=== PATIENT | female | born 1940 | race Caucasian/White ===

== ENCOUNTER → 2017-09-08 08:23 | Outpatient (CLI) | payer MEDICARE, SELFPAY ==
--- NOTE | 2017-09-08 08:27 | HPBI_ITS ---
MAMMOGRAPHY - BILATERAL SCREENING 3-D ZECHARIAH SYNTHESIS REASON FOR EXAM: Female, 77 years old. Bilateral Screening 3-D tomosynthesis PERTINENT HISTORY: No significant family history. TECHNIQUE: 2-D mammograms and 3-D Zechariah synthesis of the breast (s) were performed. CAD was performed. COMPARISON: 08/08/16 FINDINGS: The breast composition is heterogeneously dense that can obscure small breast masses. Scattered benign calcifications are seen. No dense spiculated masses or suspicious microcalcifications are identified. No architectural distortion is identified. There is no skin thickening or retraction. There has been no significant change since the prior study. HPBI/SCREENING MAMM (CAD), BILAT IMPRESSION: No mammographic signs of malignancy. Routine yearly mammograms recommended. ASSESSMENT CATEGORY: BIRADS Category 2: Benign. A letter regarding these results will be sent to the patient by the facility within 30 days. FOLLOW UP RECOMMENDATION: Yearly follow up mammogram recommended. (A) Approximately 10% of breast cancers are not detected by mammography. A normal mammogram should not delay biopsy of a clinically suspicious abnormality. Electronically Signed: Cristóbal Huynh MD at 13:35 EDT , Service support ,
== END ==
PROVIDERS: Family Provider Family Medicine; PCP Family Medicine; Visit Provider Family Medicine
DX: Z12.31 Encounter for screening mammogram for malignant neoplasm of breast (principal)
CPT/HCPCS: 77063; 77067

== ENCOUNTER → 2018-09-11 12:34 | Outpatient (CLI) | payer MEDICARE, SELFPAY ==
--- NOTE | 2018-09-11 12:37 | BI_ITS ---
MAMMOGRAPHY - BILATERAL SCREENING 3-D ZECHARIAH SYNTHESIS REASON FOR EXAM: Female, 78 years old. Bilateral Screening 3-D tomosynthesis PERTINENT HISTORY: No significant family history. TECHNIQUE: 2-D mammograms and 3-D Zechariah synthesis of the breast (s) were performed. CAD was performed. COMPARISON: August 08, 2016, July 24, 2015 FINDINGS: The breast composition is almost entirely fat. Scattered benign calcifications are stable. No dense spiculated masses or suspicious microcalcifications are identified. No architectural distortion is identified. There is no skin thickening or retraction. There has been no significant change since the prior study. BI/SCREENING MAMM (CAD), BILAT IMPRESSION: No mammographic signs of malignancy. Routine yearly mammograms recommended. ASSESSMENT CATEGORY: BIRADS Category 2: Benign. A letter regarding these results will be sent to the patient by the facility within 30 days. FOLLOW UP RECOMMENDATION: Yearly follow up mammogram recommended. (A) Approximately 10% of breast cancers are not detected by mammography. A normal mammogram should not delay biopsy of a clinically suspicious abnormality. Electronically Signed: Joce Chavis MD at 17:38 EDT , Service support ,
== END ==
PROVIDERS: Family Provider Family Medicine; PCP Family Medicine; Referring Provider Family Medicine; Visit Provider Family Medicine
DX: Z12.31 Encounter for screening mammogram for malignant neoplasm of breast (principal)
CPT/HCPCS: 77063; 77067

== ENCOUNTER → 2018-11-02 12:41 | Outpatient (CLI) | payer MEDICARE, SELFPAY ==
[2018-11-02 09:41] VITALS: BMI 18.1
[2018-11-05 13:43] LABS: HPV APTIMA, High Risk Negative (Negative)
== END ==
PROVIDERS: Family Provider Family Medicine; PCP Family Medicine; Referring Provider Nurse Practitioner Women's Health; Visit Provider Nurse Practitioner Women's Health
DX: Z85.41 Personal history of malignant neoplasm of cervix uteri (principal)
CPT/HCPCS: 87624; 88175; G0145

== ENCOUNTER → 2019-02-15 08:50 | Outpatient (CLI) | payer MEDICARE, SELFPAY ==
[2018-11-02 09:41] VITALS: BMI 18.1
--- NOTE | 2019-02-15 08:54 | NM_ITS ---
CLINICAL: 78-year-old female with reported history of osteoarthritis. WHOLE BODY 99m Tc MDP RADIONUCLIDE BONE SCINTIGRAPHY COMPARISON: None available FINDINGS: Following the intravenous administration of 26.0 mCi of 99m Tc MDP, whole body bone images reveal: 1. Increased radiopharmaceutical concentration is identified in the right anterior third rib at the costochondral junction. 2. Facilitated tracer concentration is noted in the third-fifth lumbar vertebra and sacrum posteriorly on the left and right, the acromioclavicular compartments of both shoulders, the right hip involving the inferior and superior anterior acetabulum, dorsal medial compartment of the left ankle. 3. The remaining skeletal structures are scintigraphically unremarkable with normal-appearing renal images and urinary bladder activity identified. NM/Bone Scan Whole Body IMPRESSION: 1. The increased radiopharmaceutical concentration identified in the right anterior third rib is most consistent with trauma-fracture. 2. Degenerative arthritis appears expressed in the lower lumbar spine and sacrum, bilateral shoulders, right hip, the left ankle. Electronically Signed: Ramses Villarreal DO at 23:23 EDT Tel , Service support ,
== END ==
PROVIDERS: Family Provider Family Medicine; PCP Family Medicine; Referring Provider Physician Assistant; Visit Provider Physician Assistant
DX: M17.11 Unilateral primary osteoarthritis, right knee (principal); M54.16 Radiculopathy, lumbar region; M51.36 Other intervertebral disc degeneration, lumbar region
CPT/HCPCS: 78306

== ENCOUNTER 2020-01-25 12:22 | Emergency (ER) | payer MEDICARE, SELFPAY ==
[2018-11-02 09:41] VITALS: BMI 18.1
[2020-01-25 12:23] VITALS: BP 125/82; PULSE 89; RESP 16; TEMP 36.3; O2SAT 100; BMI 18.3
[2020-01-25 12:25] VITALS: BP 125/82; PULSE 89; RESP 16; TEMP 36.3; O2SAT 100
--- NOTE | 2020-01-25 12:41 | CT_ITS ---
STUDY: CT ABDOMEN AND PELVIS WITHOUT CONTRAST REASON FOR EXAM: Female, 79 years old. CYCLICAL VOMITING/ABD CRAMPING/VOMITING/DIARRHEA,HX CERVICAL/UTERINE CA RADIATION DOSAGE (If Supplied By Facility): CTDIvol = ( 6.04 ) mGy, DLP = ( 250.64 ) mGycm TECHNIQUE: Transaxial images were obtained from the dome of the diaphragm to the symphysis pubis without oral contrast, and without intravenous contrast. Sagittal and coronal images were reconstructed. Individualized dose optimization techniques were used for this CT. COMPARISON: None. FINDINGS: Mild increased linear markings in the lingular segment of the left upper lobe suggestive of scarring. The visualized portions of the heart are within normal limits. Normal liver. Small amount of perihepatic and perisplenic fluid. Scattered calcified granulomas in the liver. There is a 6.4 mm cyst in the posterior aspect of the dome of the right lobe of the liver. The gallbladder is not visualized. There are multiple benign calcified granulomata of the spleen. Normal pancreas. Normal bilateral adrenal glands. Normal right kidney. There is a 3.2 cm x 3.6 m cyst in the anterior aspect of the left kidney. Normal visualized stomach. Normal small intestine. Normal colon. The appendix is visualized and appears normal. There is a 2.7 cm x 2.3 cm densely calcified nodule in the right retroperitoneal area adjacent to the psoas muscle. Linear intensity is seen extending cephalad into the region of the gallbladder fossa. There is diffuse atherosclerotic calcification of the abdominal aorta and the major visceral branches, without a demonstrated aneurysm. Normal inferior vena cava. Normal retroperitoneum. Normal urinary bladder. There is absence of the uterus consistent with a prior hysterectomy. Normal abdominal wall. There are diffuse degenerative changes of the visualized lumbar spine. Dextroscoliosis. Straightening of the normal lumbar lordosis. CT/Abdomen/Pelvis without Cont IMPRESSION: Surgical clips are seen in the region of the gallbladder fossa with a dense calcific nodule in the right side of the retroperitoneum adjacent to the psoas muscle. Small amount of perihepatic fluid. Splenic granulomas and scattered granulomas in the liver. Electronically Signed: Jimenez Hu, at 13:13 EDT , Service support ,
--- NOTE | 2020-01-25 12:49 | ED.DCSUM_ITS ---
- ER Visit Summary Date of Service: 01/25/20 Chief Complaint: [Abdominal pain and vomiting] History of Present Illness: The patient is a 79 F [presents to the emergency department complaint of vomiting that started 3 nights ago. Patient has not vomited since that time but continues to have nausea and intermittent abdominal pain to the lower abdomen. Patient's had 4 loose stools today. Patient states that when she was living in [place] she was diagnosed with peptic ulcer disease but her primary care physician here has diagnosed her with cyclic vomiting syndrome. Patient has prior history of hysterectomy related to cervical cancer. Patient otherwise has no significant medical history. She denies any fevers. She denies urinary symptoms.] Physical Examination: [HEENT-PERRLA, EOMI. Cranial nerves II through XII grossly intact. TMs clear. Mucous membranes moist. No adenopathy. Cardiovascular-regular rate and rhythm without murmur or ectopy Lungs-clear to auscultation, chest wall stable without crepitus or subcu emphysema Abdomen-normoactive bowel sounds, soft. Patient has tenderness palpation over lower abdomen. No rebound, rigidity, or peritoneal signs noted. No obvious masses palpated. Negative Frias sign. Extremities-intact ?4, normal range of motion, normal pulses, atraumatic] Test Results: [CBC with differential showed a white count of 4.6, hemoglobin 15.7, hematocrit 47, platelets 274. Chemistries unremarkable. Total bilirubin was slightly elevated 2.1. Lipase was 133. Urinalysis was normal. Lactate was 1.6. CT scan of the abdomen pelvis without IV contrast showed a 2.7 x 2.3 cm nodule right retroperitoneal next to the right psoas muscle. Patient also had small amount of perihepatic fluid and splenic granulomas and scattered granulomas within the liver.] Emergency Department Course and Treatment: [ Establish. Patient was given normal saline. Patient given 4 mg of morphine and 4 mg of Zofran she had good symptom relief with that.] Case was discussed with Dr. Aliza Nelson and will discuss case with her primary care physician. Treatment Plan: [Patient to follow-up with her primary care physician within next 3 to 5 days. A prescription was sent to pharmacy from her primary care physician's office for Zofran which she will parts picker. She does not anything for pain for home. Patient advised that if the pain should worsen or she should start running fevers or persistent vomiting she is return to the emergency department.] Disposition: [Discharged home in stable condition] Impression: [Abdominal pain-acute on chronic-etiology uncertain] This note was generated with [employer] dictation software. It may contain incorrect words, spelling, and punctuation that were not noted in review of the chart prior to signing ED Disposition - Plan for ED Patient: Referrals: Milind Pedro MD [Primary Care Provider] -
[2020-01-25] MEDS: Ondansetron 4 MG/2 ML Vial IV (13:10)
[2020-01-25] MEDS: 0.9% Normal Saline 1,000 ML 125 ML IV (13:10)
[2020-01-25] MEDS: Morphine 4 MG/ML Syringe IV (13:10)
[2020-01-25 13:22] LABS: Color, Urine Yellow (Yellow); Glucose, Dipstick Normal (Normal); Ketone-Dipstick 5 mg/dl (Negative); Leukocyte Esterase-Dipstick Negative /ul (Negative); Nitrite-Dipstick Negative (Negative); Occult Blood-Urine 150 /ul (Negative); Protein-Dipstick 15 mg/dl (Negative); Urine Bilirubin Dipstick Negative (Negative); Urine Clarity Clear (Clear); Urine Urobilinogen Normal (Normal)
[2020-01-25 13:24] LABS: Absolute Lymphocyte Count 0.59 X10^3/uL (0.83-4.51); Absolute Neutrophil Count 3.4 X10^3/uL (2.0-7.7); Basophil# 0.01 X10^3/uL; Basophil% 0.2 % (0-1); Eosinophil# 0.01 X10^3/uL; Eosinophils% 0.2 % (0-5); Hematocrit 47.2 % (37-47); Hemoglobin 15.7 g/dL (12.0-15.0); Lymphocyte # 0.59 X10^3/ul (4.0); Lymphocyte % 12.8 % (19-41); Mean Corp Hgb Conc 33.3 g/dL (32-36); Mean Corpuscular Hgb 33.1 pg (27.0-32.0); Mean Corpuscular Volume 99.6 fL (81-99); Mean Platelet Vol. 9.5 fl (6.2-12.0); NRBC Flagged by Analyzer 0 % (0-5); Neutrophil # 3.39 X10^3/uL (2.7-7.7); Neutrophil % 73.8 % (47-70); POSITIVE DIFFERENTIAL YES; Platelet Count 274 K/mm3 (150-450); RBC Distribution Width CV 12.2 % (11.6-14.6); RBC Distribution Width SD 44.9 fl (35.1-43.9); Red Blood Count 4.74 M/mm3 (4.2-5.4); White Blood Count 4.6 K/mm3 (4.4-11.0)
[2020-01-25 13:34] LABS: Bacteria 1+ /hpf (None Seen); Mucous, Urine 2+ /hpf (<or=2+); Red Blood Cells-Urine 0-5 SEEN /hpf (0-5); Renal Epithelial Cells 0-5 SEEN /hpf (0-5); Squamous Epithelial Cells - UA 0-5 SEEN /hpf (5-10); White Blood Cells 0-5 SEEN /hpf (0-5)
[2020-01-25 13:39] LABS: ALB/GLOB Ratio 1.1 RATIO (0.9-2.4); AST(SGOT) 20 U/L (15-37); Alanine Aminotransfer ALT/SGPT 28 U/L (13-56); Albumin, Serum 3.4 g/dL (3.2-5.0); Alkaline Phosphatase 82 U/L (45-117); Anion Gap 4 (5-15); BUN 18 mg/dL (7-18); BUN/Creat Ratio 18.3 RATIO (10-20); Calcium,Total 8.7 mg/dL (8.5-10.1); Chloride 105 mmol/L (98-107); Creatinine, Serum 0.98 mg/dL (0.55-1.02); EST Glomerular Filtration Rate 58 mL/min (>60); Est Glom Filt Rate - Afr Amer 71 mL/min (>60); Estimated Creatinine Clearance 37.87 ml/min; Globulin 3.2 g/dL (2.2-4.2); Glucose 117 mg/dL (74-106); Lipase 133 U/L (73-393); Potassium 4.3 mmol/L (3.5-5.1); Protein, Total 6.6 g/dL (6.4-8.2); Sodium Level 140 mmol/L (136-145)
[2020-01-25 13:46] LABS: Differential Indicated SCAN CRITERIA MET
[2020-01-25 14:00] LABS: Lactic Acid 1.6 mmol/L (0.4-1.9)
[2020-01-25 14:29] VITALS: BP 100/59; PULSE 58; RESP 16; O2SAT 98
--- NOTE | 2020-01-25 14:31 | ED.DEP ---
ED Disposition - Plan for ED Patient: Instructions: ED Abdominal Pain Unkn Cause Fem Referrals: Milind Pedro MD [Primary Care Provider] - 3-5 Days
== END 2020-01-25 14:46 | disposition home or self-care (01) ==
PROVIDERS: Emergency Provider Emergency Medicine; PCP Family Medicine
DX: R10.30 Lower abdominal pain, unspecified (principal); R11.2 Nausea with vomiting, unspecified; R19.7 Diarrhea, unspecified; Z87.11 Personal history of peptic ulcer disease; Z85.42 Personal history of malignant neoplasm of other parts of uterus; Z90.710 Acquired absence of both cervix and uterus
CPT/HCPCS: 74176; 80053; 81001; 83605; 83690; 85025; 96361; 96374; 96375; 99283; J7030; A4216; J2405

== ENCOUNTER 2020-02-06 13:51 | Emergency (ER) | payer MEDICARE, SELFPAY ==
[2020-02-06 13:52] VITALS: BP 124/74; PULSE 94; RESP 17; TEMP 36.6; O2SAT 97; BMI 16.2
--- NOTE | 2020-02-06 14:22 | EKG12_ITS ---
Test Reason : ABDOMINAL PAIN Blood Pressure : / mmHG Vent. Rate : 069 BPM Atrial Rate : 340 BPM P-R Int : 000 ms QRS Dur : 156 ms QT Int : 368 ms P-R-T Axes : 000 081 078 degrees QTc Int : 394 ms Normal sinus rhythm Non-specific intra-ventricular conduction block Abnormal ECG Confirmed by CAIO NEAL, ELIAZAR ([id number]), digital editor SHAHRZAD HADLEY ([id number]) on 02/07/2020 2:44:55 PM Referred By: JACQUES Confirmed By:ELIAZAR KEARNEY MD
--- NOTE | 2020-02-06 14:32 | NURSING ---
NO OLD EKGS
[2020-02-06] MEDS: proMETHazine 25 MG/ML Syringe 6.25 MG IV (14:42)
[2020-02-06 14:43] LABS: Absolute Lymphocyte Count 0.54 X10^3/uL (0.83-4.51); Basophil# 0.02 X10^3/uL; Basophil% 0.2 % (0-1); Eosinophil# 0.03 X10^3/uL; Eosinophils% 0.3 % (0-5); Hematocrit 44.6 % (37-47); Lymphocyte # 0.54 X10^3/ul (4.0); Lymphocyte % 5.9 % (19-41); Mean Corp Hgb Conc 33.6 g/dL (32-36); Mean Corpuscular Hgb 32.9 pg (27.0-32.0); Mean Corpuscular Volume 97.8 fL (81-99); Mean Platelet Vol. 9.6 fl (6.2-12.0); Monocyte# 0.61 X10^3/uL; Monocyte% 6.6 % (0-10); NRBC Flagged by Analyzer 0 % (0-5); Neutrophil # 7.98 X10^3/uL (2.7-7.7); Neutrophil % 86.9 % (47-70); POSITIVE DIFFERENTIAL YES; Platelet Count 347 K/mm3 (150-450); RBC Distribution Width CV 11.8 % (11.6-14.6); RBC Distribution Width SD 42.5 fl (35.1-43.9); Red Blood Count 4.56 M/mm3 (4.2-5.4); White Blood Count 9.2 K/mm3 (4.4-11.0)
[2020-02-06] MEDS: 0.9% Normal Saline 1,000 ML 1000 ML IV (14:43)
[2020-02-06 14:44] LABS: Differential Indicated SCAN CRITERIA MET
--- NOTE | 2020-02-06 14:59 | ED.DCSUM_ITS ---
History of Present Illness Chief Complaint: Abd Pain Informant: Patient, Significant Other - Abdominal Pain/Flank Pain Onset: Weeks Context: Gradual Onset Timing: Intermittent Quality: Aching, Cramping Location: RLQ, LLQ - Nausea/Vomiting/Emesis GI Symptom: Nausea, Vomiting Quality: Coffee ground - Diarrhea/Melena/Hematochezia GI Symptom: Diarrhea Stool Quality: Loose. Negative for: Black, Maroon, YELENA per rectum Associated Symptoms: Negative for: Dysuria, Frequency, Hematuria Narrative: Patient is a 79-year-old female with history of peptic ulcer disease and cyclic vomiting syndrome presenting with lower abdominal pain. Patient states she has had intermittent episodes of lower abdominal pain, vomiting and diarrhea for the past 2 weeks. She is actually evaluated in the ER 10 days ago with same symptoms. At that time she had blood work and a CT which were all grossly negative. She was discharged home with a course of Zofran. She followed up with her PCP and has an appointment to see HELENA Page on February 23. She states she is continued to have recurrent episodes and wanted to be evaluated further. She states she has not had any vomiting or diarrhea today but has had lower abdominal pain that she describes as aching and cramping in nature. She has some associated nausea. When she is having a vomiting diarrhea episode she has chills but denies any fever. She denies any chest pain or shortness of breath. She does get a headache sometimes with her symptoms. She denies any urinary symptoms. Patient is been taking Pepcid the last 2 days with no significant leaf of her symptoms and the Zofran is not helping either. She denies any marijuana or other drug use. She does not take any medications on a daily basis. Week ago she did have what looked like coffee-ground emesis but that has since resolved. No other complaints at this time. Past Medical History - Allergies and Home Meds Allergies/Adverse Reactions: Allergies No Known Allergies Allergy (Verified 02/06/20 13:52) Primary Care Physician: Milind Pedro MD [Primary Care Provider] - Past Medical History: - - Peptic ulcer disease, cyclic vomiting syndrome Surgical History: noncontributory Lives: Spouse/ Significant Other Smoking Status: Never smoker Alcohol: None Drugs: None Review of Systems General: Denies: Chills, Fever, Sweats Eyes: Denies: Visual changes - bilaterally, Diplopia ENT: Denies: Rhinorrhea, Sore throat Cardiovascular: Denies: Chest pain, Palpitations Respiratory: Denies: Dyspnea, Cough, Dyspnea on exertion Gastrointestinal: Reports: Abdominal pain, Nausea, Vomiting, Diarrhea. Denies: Melena, Hematochezia Genitourinary: Denies: Dysuria, Hematuria, Frequency Musculoskeletal: Denies: Back pain, Extremity Pain Skin: Denies: Rash, Wounds Neurological: Reports: Headache. Denies: Weakness, Numbness Physical Exam Vital Signs/Narrative: Vital Signs Temp Pulse Resp BP Pulse Ox 02/06/20 13:52 97.8 F 94 17 124/74 H 97 Inital Vital Signs reviewed: Yes General: Well nourished, Well developed, No Acute Distress Head: Normocephalic, Atraumatic Eyes: Perrl, EOMI ENT: Moist mucous membranes, No rhinorrhea Neck: Supple, Nontender Cardiovascular: Regular rate, Regular rhythm, No murmurs Respiratory: No distress, CTA bilaterally, Chest nontender Abdomen: Soft, Nontender, Nondistended, Normal bowel sounds, - - Mild voluntary guarding on abdominal exam but no reproducible tenderness. Negative for: Guarding, Rebound tenderness Back: Nontender, Normal Inspection. Negative for: CVA tenderness Extremities: Nontender, No edema Skin: Normal color, No rash Neurological: Alert, Oriented x3, Cranial nerves II-XII grossly intact, Normal Strength, Normal Sensation Psychological: Normal affect, Normal Mood Diagnostic/Tx/Re-eval Laboratory Data 02/06/20 02/06/20 02/06/20 14:40 14:40 14:40 WBC 9.2 RBC 4.56 Hgb 15.0 Hct 44.6 MCV 97.8 MCH 32.9 H MCHC 33.6 RDW Std Deviation 42.5 RDW Coeff of Raysa 11.8 Plt Count 347 MPV 9.6 Immature Gran % (Auto) 0.100 Neut % (Auto) 86.9 H Lymph % (Auto) 5.9 L [place] % (Auto) 6.6 Eos % (Auto) 0.3 Baso % (Auto) 0.2 Absolute Neuts (auto) 8.0 H Absolute Lymphs (auto) 0.54 L Nucleated RBC % 0 Reactive Lymphocytes RARE Sodium 141 Potassium 3.7 Chloride 104 Carbon Dioxide 32.0 Anion Gap 5 BUN 11 Creatinine 0.81 Estim Creat Clear Calc 40.49 Est GFR (MDRD) Af Amer 88 Est GFR (MDRD) Non-Af 73 BUN/Creatinine Ratio 13.5 Glucose 95 Lactic Acid 1.4 Calcium 8.9 Total Bilirubin 1.10 H AST 15 ALT 14 Alkaline Phosphatase 83 Troponin I < 0.015 Total Protein 6.3 L Albumin 3.1 L Globulin 3.2 Albumin/Globulin Ratio 1.0 Lipase 156 Urine Color Urine Clarity Urine pH Ur Specific [place] Urine Protein Urine Glucose (UA) Urine Ketones Urine Occult Blood Urine Nitrite Urine Bilirubin Urine Urobilinogen Ur Leukocyte Esterase Urine RBC Urine WBC Ur Squamous Epith Cells Urine Bacteria Urine Mucus 02/06/20 15:10 WBC RBC Hgb Hct MCV MCH MCHC RDW Std Deviation RDW Coeff of Raysa Plt Count MPV Immature Gran % (Auto) Neut % (Auto) Lymph % (Auto) [place] % (Auto) Eos % (Auto) Baso % (Auto) Absolute Neuts (auto) Absolute Lymphs (auto) Nucleated RBC % Reactive Lymphocytes Sodium Potassium Chloride Carbon Dioxide Anion Gap BUN Creatinine Estim Creat Clear Calc Est GFR (MDRD) Af Amer Est GFR (MDRD) Non-Af BUN/Creatinine Ratio Glucose Lactic Acid Calcium Total Bilirubin AST ALT Alkaline Phosphatase Troponin I Total Protein Albumin Globulin Albumin/Globulin Ratio Lipase Urine Color Yellow Urine Clarity Sl. Cloudy Urine pH 7.0 Ur Specific [place] 1.005 Urine Protein Negative Urine Glucose (UA) Normal Urine Ketones 15 H Urine Occult Blood 10 H Urine Nitrite Negative Urine Bilirubin Negative Urine Urobilinogen 1 H Ur Leukocyte Esterase Negative Urine RBC 0 SEEN Urine WBC 0 SEEN Ur Squamous Epith Cells 0-5 SEEN Urine Bacteria 0 SEEN Urine Mucus 0 SEEN - Rhythm Strip Rhythm Strip: Sinus Rhythm Rate: 69 Ectopy: None - EKG Initial EKG Interpretation: Sinus Rhythm, - - Sinus rhythm at a rate of 69 Normal intervals Normal axis Normal ST segments - Medical Decision Making Patient evaluated for recurrent episodes of lower abdominal pain. It is consistent with her episodes of cyclic vomiting syndrome. Patient had a very thorough work-up 10 days ago including blood work, urine and CT of the abdomen and pelvis. Work-up was largely negative. Repeat blood work and urinalysis did not show any acute process. Patient's lactate is normal. She is not pain out of proportion to exam. I do not suspect that she has a more insidious process such as ischemia of the bowels, infection or sepsis. I do not think repeat imaging is indicated at this time. Patient is given IV Phenergan and fluids and has significant resolution of her symptoms. I suspect this is flareup of her cyclic vomiting syndrome which she states she has a previous diagnosis of. Patient be discharged home with Bentyl and Phenergan for symptomatic relief. She has a follow-up with GI in 2 weeks. She is instructed to follow-up with her primary care doctor this week. She is directed to continue taking Pepcid as she might have a component of gastritis from all the vomiting. Patient is counseled on signs and symptoms requiring return to the emergency room. Patient verbalizes agreement and understand this plan. Patient discharged home in stable and improved condition. ED Disposition - Plan for ED Patient: Disposition: Home or Assisted Living Diagnosis: Vomiting and diarrhea, Lower abdominal pain of unknown etiology Instructions: ED Vomiting and Diarrhea Nonspecific Adult, ED Abdominal Pain Unkn Cause Fem Prescriptions: Dicyclomine HCl [Bentyl] 20 mg PO TIDAC #20 cap Transmission Status: Pending to [facility]ILY[facility] GONZALE[address] [facility] proMETHazine tablet [Phenergan tablet] 12.5 - 25 mg PO Q6H PRN PRN #15 tab PRN Reason: Nausea Transmission Status: Pending to [facility]ILY[facility] GONZALE[address] Referrals: Milind Pedro MD [Primary Care Provider] - Additional Instructions: Work-up did not show any acute process today. I think it safe for you to continue to follow-up with your primary care doctor and her GI doctor.
[2020-02-06 15:03] LABS: Reactive Lymphocyte RARE
[2020-02-06 15:04] LABS: AST(SGOT) 15 U/L (15-37); Alanine Aminotransfer ALT/SGPT 14 U/L (13-56); Albumin, Serum 3.1 g/dL (3.2-5.0); Alkaline Phosphatase 83 U/L (45-117); Anion Gap 5 (5-15); BUN 11 mg/dL (7-18); BUN/Creat Ratio 13.5 RATIO (10-20); Calcium,Total 8.9 mg/dL (8.5-10.1); Chloride 104 mmol/L (98-107); Creatinine, Serum 0.81 mg/dL (0.55-1.02); EST Glomerular Filtration Rate 73 mL/min (>60); Est Glom Filt Rate - Afr Amer 88 mL/min (>60); Estimated Creatinine Clearance 40.49 ml/min; Globulin 3.2 g/dL (2.2-4.2); Glucose 95 mg/dL (74-106); Lipase 156 U/L (73-393); Potassium 3.7 mmol/L (3.5-5.1); Protein, Total 6.3 g/dL (6.4-8.2); Sodium Level 141 mmol/L (136-145)
[2020-02-06 15:18] LABS: Bacteria 0 SEEN /hpf (None Seen); Mucous, Urine 0 SEEN /hpf (<or=2+); Red Blood Cells-Urine 0 SEEN /hpf (0-5); White Blood Cells 0 SEEN /hpf (0-5)
[2020-02-06 15:21] LABS: Lactic Acid 1.4 mmol/L (0.4-1.9)
[2020-02-06 15:27] LABS: Color, Urine Yellow (Yellow); Glucose, Dipstick Normal (Normal); Ketone-Dipstick 15 mg/dl (Negative); Leukocyte Esterase-Dipstick Negative /ul (Negative); Nitrite-Dipstick Negative (Negative); Occult Blood-Urine 10 /ul (Negative); Protein-Dipstick Negative (Negative); Specific Gravity, Urine 1.005 (1.002-1.030); Urine Bilirubin Dipstick Negative (Negative); Urine Clarity Sl. Cloudy (Clear); Urine Urobilinogen 1 mg/dl (Normal)
[2020-02-06 15:39] LABS: Squamous Epithelial Cells - UA 0-5 SEEN /hpf (5-10)
[2020-02-06] MEDS: Dicyclomine 10 MG Capsule PO (16:11)
[2020-02-06 16:21] VITALS: RESP 18
== END 2020-02-06 16:22 | disposition home or self-care (01) ==
PROVIDERS: Emergency Provider Emergency Medicine; PCP Family Medicine
DX: R10.30 Lower abdominal pain, unspecified (principal); R19.7 Diarrhea, unspecified; R11.2 Nausea with vomiting, unspecified; R51 Headache; Z79.899 Other long term (current) drug therapy; Z87.11 Personal history of peptic ulcer disease
CPT/HCPCS: 80053; 81001; 83605; 83690; 84484; 85025; 93005; 96361; 96374; 99284; J7030; A4216

== ENCOUNTER 2020-02-15 08:58 | Emergency (ER) | payer MEDICARE, SELFPAY ==
[2020-02-15 09:00] VITALS: BP 108/74; PULSE 64; RESP 18; TEMP 36.4; O2SAT 94; BMI 15.8
[2020-02-15 09:07] VITALS: PULSE 79; RESP 16; O2SAT 96
--- NOTE | 2020-02-15 09:18 | ED.VIS.GEN ---
History of Present Illness Chief Complaint: Abd Pain Informant: Patient Narrative: 79-year-old female presenting with lower abdominal pain. She states that she is had this on and off for a while. It is been persistent for the last 4 days. She states that she has associated symptoms of vomiting which she described as black specks but now it is white when she vomits.. She also states she has diarrhea. She is on a bland diet since she was last evaluated in the ED and told she had a stomach ulcer. She states that she was treated for stomach ulcer in the past but upon follow-up with her new care physician he told her she had no history of H. pylori and weaned her off of the medication. She thinks it might of been Zantac. Patient denies any fever, myalgias, cough, shortness of breath. She denies urinary complaints. She states she is had one surgery in her abdomen which was a hysterectomy. She states that she was told previously when she had a CT that her gallbladder was removed, and she does not know how this got removed. - Past Medical History (1) Personal history of malignant neoplasm of cervix uteri Status: Chronic Comment: hysterectomy with radiation for tumor involving cervix into uterus approx 1994/ Past Medical History - Allergies and Home Meds Allergies/Adverse Reactions: Allergies No Known Allergies Allergy (Verified 02/06/20 13:52) Primary Care Physician: Milind Pedro MD [Primary Care Provider] - Prior records reviewed: Yes Surgical History: noncontributory, - - Hysterectomy, cholecystectomy Lives: Spouse/ Significant Other Smoking Status: Never smoker Alcohol: None Drugs: None Review of Systems General: Denies: Chills, Fever, Sweats Eyes: Denies: Visual changes - bilaterally, Diplopia ENT: Denies: Rhinorrhea, Sore throat Cardiovascular: Denies: Chest pain, Palpitations Respiratory: Denies: Dyspnea, Cough, Dyspnea on exertion Gastrointestinal: Reports: Abdominal pain, Nausea, Vomiting, Diarrhea Genitourinary: Denies: Dysuria, Hematuria, Frequency Musculoskeletal: Denies: Myalgias, Arthralgias Skin: Denies: Rash Neurological: Denies: Headache, Weakness Physical Exam Vital Signs/Narrative: Vital Signs Temp Pulse Resp BP Pulse Ox 02/15/20 09:07 79 16 96 02/15/20 09:00 97.5 F L 64 18 108/74 94 Inital Vital Signs reviewed: Yes General: Well nourished, Well developed, No Acute Distress Head: Normocephalic, Atraumatic Eyes: Perrl, EOMI ENT: Moist mucous membranes, No rhinorrhea Neck: Supple, Nontender Cardiovascular: Regular rate, Regular rhythm, No murmurs Respiratory: No distress, CTA bilaterally, Chest nontender Abdomen: Soft, Nontender, Nondistended Extremities: Nontender, No edema Skin: Normal color, No rash Neurological: Alert, Oriented x3 Psychological: Normal affect Diagnostic/Tx/Re-eval Laboratory Data 02/15/20 02/15/20 02/15/20 09:30 09:30 10:34 WBC 6.1 RBC 4.35 Hgb 14.7 Hct 42.7 MCV 98.2 MCH 33.8 H MCHC 34.4 RDW Std Deviation 43.0 RDW Coeff of Raysa 11.9 Plt Count 317 MPV 9.5 Immature Gran % (Auto) 0.200 Neut % (Auto) 79.3 H Lymph % (Auto) 8.9 L [place] % (Auto) 11.2 H Eos % (Auto) 0.2 Baso % (Auto) 0.2 Absolute Neuts (auto) 4.8 Absolute Lymphs (auto) 0.54 L Nucleated RBC % 0 Sodium 141 Potassium 4.0 Chloride 106 Carbon Dioxide 31.0 Anion Gap 4 L BUN 11 Creatinine 0.80 Estim Creat Clear Calc 40.16 Est GFR (MDRD) Af Amer 90 Est GFR (MDRD) Non-Af 74 BUN/Creatinine Ratio 13.8 Glucose 98 Calcium 8.4 L Total Bilirubin 0.80 AST 17 ALT 15 Alkaline Phosphatase 83 Total Protein 6.0 L Albumin 3.0 L Globulin 3.0 Albumin/Globulin Ratio 1.0 Lipase 244 Urine Color Yellow Urine Clarity Clear Urine pH 6.5 Ur Specific [place] 1.010 Urine Protein Negative Urine Glucose (UA) Normal Urine Ketones 5 H Urine Occult Blood 10 H Urine Nitrite Negative Urine Bilirubin Negative Urine Urobilinogen Normal Ur Leukocyte Esterase Negative Urine RBC 0-5 SEEN Urine WBC 0-5 SEEN Ur Squamous Epith Cells 0 SEEN Urine Bacteria RARE Urine Mucus 0 SEEN - Medical Decision Making Patient presents with abdominal pain and vomiting both of which have resolved prior to arrival. She has had this in the past and states that her last CAT scan was normal. I did check blood work which was all within normal limits. Her hemoglobin is actually high and I am uncertain with the black specks in her emesis were but they have resolved and she now has none of those symptoms. Her urinalysis is negative. We did discuss possibly repeating a CAT scan however she does not have any pain on examination and her blood work is normal. Patient will be discharged home with precautions to return if her pain increases. Patient is encouraged to follow-up with her GI doctor to have her upper endoscopy and colonoscopy on the third. Patient is stable for discharge at this time. Impression: 1. Abdominal pain unknown cause resolved 2. Nausea vomiting resolved ED Disposition - Plan for ED Patient: Disposition: Home or Assisted Living Instructions: ED Abdominal Pain Unkn Cause Fem, ED Diet for Vomiting or Diarrhea Adult Prescriptions: Omeprazole [Prilosec] 20 mg PO DAILY #30 cap Transmission Status: Received by [facility]ILYN GONZALEZ RD Ondansetron [Zofran Odt] 4 mg PO Q8H PRN PRN #20 tab PRN Reason: Nausea Transmission Status: Received by [facility]ILYN GONZALEZ RD Referrals: Milind Pedro MD [Primary Care Provider] -
[2020-02-15 09:39] LABS: Absolute Lymphocyte Count 0.54 X10^3/uL (0.83-4.51); Absolute Neutrophil Count 4.8 X10^3/uL (2.0-7.7); Basophil# 0.01 X10^3/uL; Basophil% 0.2 % (0-1); Eosinophil# 0.01 X10^3/uL; Eosinophils% 0.2 % (0-5); Hematocrit 42.7 % (37-47); Hemoglobin 14.7 g/dL (12.0-15.0); Lymphocyte # 0.54 X10^3/ul (4.0); Lymphocyte % 8.9 % (19-41); Mean Corp Hgb Conc 34.4 g/dL (32-36); Mean Corpuscular Hgb 33.8 pg (27.0-32.0); Mean Corpuscular Volume 98.2 fL (81-99); Mean Platelet Vol. 9.5 fl (6.2-12.0); Monocyte# 0.68 X10^3/uL; Monocyte% 11.2 % (0-10); NRBC Flagged by Analyzer 0 % (0-5); Neutrophil # 4.83 X10^3/uL (2.7-7.7); Neutrophil % 79.3 % (47-70); POSITIVE DIFFERENTIAL YES; Platelet Count 317 K/mm3 (150-450); RBC Distribution Width CV 11.9 % (11.6-14.6); Red Blood Count 4.35 M/mm3 (4.2-5.4); White Blood Count 6.1 K/mm3 (4.4-11.0)
[2020-02-15] MEDS: 0.9% Normal Saline 1,000 ML 1000 ML IV (09:46)
[2020-02-15 09:53] LABS: AST(SGOT) 17 U/L (15-37); Alanine Aminotransfer ALT/SGPT 15 U/L (13-56); Alkaline Phosphatase 83 U/L (45-117); Anion Gap 4 (5-15); BUN 11 mg/dL (7-18); BUN/Creat Ratio 13.8 RATIO (10-20); Calcium,Total 8.4 mg/dL (8.5-10.1); Chloride 106 mmol/L (98-107); EST Glomerular Filtration Rate 74 mL/min (>60); Est Glom Filt Rate - Afr Amer 90 mL/min (>60); Estimated Creatinine Clearance 40.16 ml/min; Glucose 98 mg/dL (74-106); Lipase 244 U/L (73-393); Sodium Level 141 mmol/L (136-145)
[2020-02-15 09:57] LABS: Differential Indicated SCAN CRITERIA MET
[2020-02-15 10:41] VITALS: BP 120/60
[2020-02-15 10:44] LABS: Mucous, Urine 0 SEEN /hpf (<or=2+); Squamous Epithelial Cells - UA 0 SEEN /hpf (5-10)
[2020-02-15 10:46] LABS: Color, Urine Yellow (Yellow); Glucose, Dipstick Normal (Normal); Ketone-Dipstick 5 mg/dl (Negative); Leukocyte Esterase-Dipstick Negative /ul (Negative); Nitrite-Dipstick Negative (Negative); Occult Blood-Urine 10 /ul (Negative); Protein-Dipstick Negative (Negative); Urine Bilirubin Dipstick Negative (Negative); Urine Clarity Clear (Clear); Urine Urobilinogen Normal (Normal); Urine pH 6.5 (5.0 - 8.0)
[2020-02-15 10:57] LABS: Bacteria RARE /hpf (None Seen); Red Blood Cells-Urine 0-5 SEEN /hpf (0-5); White Blood Cells 0-5 SEEN /hpf (0-5)
[2020-02-15 11:33] VITALS: BP 120/60; RESP 18
--- NOTE | 2020-02-15 13:00 | CHAPLAIN ---
Type of Pastoral Visit _x__ Initial Visit ___ Follow-up Visit ___ On-call Visit ___ General Patient Visit ___ Spiritual Assessment ___ Family Conference ___ Bereavement ___ Rapid Response ___ Code Blue ___ Other (describe below) Pastoral Care Referral From ___ Patient _x__ Family ___ Nurse ___ Physician ___ Cvir Tech ___ Decoration Checker ___ Other (describe below) Sacrament/Intervention _x__ Active listening ___ Anointing ___ Restoration ___ Bereavement ___ Communion ___ Erica exploration ___ ___ Life review _x__ Prayer ___ Reconciliation ___ Sacrament of Sick _x__ Supportive presence ___ Wedding ___ Other (describe below) Pastoral Comments
== END 2020-02-15 11:34 | disposition home or self-care (01) ==
PROVIDERS: Emergency Provider Student in an Organized Health Care Education/Training Program; PCP Family Medicine
DX: R10.30 Lower abdominal pain, unspecified (principal); R19.7 Diarrhea, unspecified
CPT/HCPCS: 80053; 81001; 83690; 85025; 96360; 99283; J7030; A4216

== ENCOUNTER 2020-03-08 17:49 | Emergency (ER) | payer MEDICARE, SELFPAY ==
[2020-03-08 17:50] VITALS: BP 121/58; PULSE 100; RESP 18; TEMP 36.3; O2SAT 99; BMI 15.0
--- NOTE | 2020-03-08 18:33 | ED.DCSUM_ITS ---
History of Present Illness Chief Complaint: Abd Pain Informant: Patient Onset: Days Context: Gradual Onset Current Severity: Moderate Maximum Severity: Moderate Narrative: Patient presents secondary to abdominal pain. She has been seen here 3 times in the last month and a half for the same. Work-up here was unremarkable and patient had both an EGD and colonoscopy performed [address] Bond. Family states that they were not told anything specific about the results following the test but that everything seemed to look okay. Daughter states there was a 13 mm polyp that was removed. Patient states that she woke that night with mid abdominal pain that has persisted. She has been nauseated with no vomiting. She has had poor appetite and is not eating much. Daughter states that they are here essentially to get medical transport to the [facility]. Daughter has text messages on her phone telling her to go to [facility] ER to be evaluated. Daughter did not feel comfortable driving her up there in her car and wants medical personnel to take her. - Past Medical History (1) GERD (gastroesophageal reflux disease) Status: Chronic Past Medical History - Allergies and Home Meds Allergies/Adverse Reactions: Allergies No Known Allergies Allergy (Verified 03/08/20 17:50) Primary Care Physician: Milind Pedro MD [Primary Care Provider] - Prior records reviewed: Yes Surgical History: noncontributory, - - Hysterectomy, cholecystectomy Smoking Status: Never smoker Review of Systems General: Denies: Chills, Fever Eyes: Denies: Visual changes - bilaterally ENT: Denies: Bilateral ear pain Cardiovascular: Denies: Chest pain Respiratory: Denies: Dyspnea, Cough Gastrointestinal: Reports: Abdominal pain, Nausea. Denies: Vomiting, Diarrhea Genitourinary: Denies: Dysuria Musculoskeletal: Denies: Extremity Pain Skin: Denies: Rash Neurological: Denies: Headache Hematologic: Denies: Easy bruising, Easy bleeding Allergy: Denies: Uticaria Physical Exam Vital Signs/Narrative: Vital Signs Temp Pulse Resp BP Pulse Ox 03/08/20 17:50 97.4 F L 100 18 121/58 H 99 Inital Vital Signs reviewed: Yes General: Well nourished, Well developed Head: Normocephalic ENT: Moist mucous membranes Neck: Supple Cardiovascular: Regular rate, Regular rhythm Respiratory: No distress, CTA bilaterally Abdomen: Soft, Tender - Mild diffuse tenderness., Hypoactive bowel sounds. Negative for: Guarding, Rebound tenderness Skin: Normal color Neurological: Alert, Oriented x3 Psychological: Normal affect Diagnostic/Tx/Re-eval Laboratory Results 03/08/20 03/08/20 19:00 19:00 WBC 8.9 RBC 4.67 Hgb 15.0 Hct 44.0 MCV 94.2 MCH 32.1 H MCHC 34.1 RDW Std Deviation 42.7 RDW Coeff of Raysa 12.3 Plt Count 252 MPV 9.0 Immature Gran % (Auto) 0.300 Neut % (Auto) 78.2 H Lymph % (Auto) 14.0 L [place] % (Auto) 7.2 Eos % (Auto) 0.1 Baso % (Auto) 0.2 Absolute Neuts (auto) 7.0 Absolute Lymphs (auto) 1.25 Nucleated RBC % 0 Sodium 140 Potassium 3.2 L Chloride 103 Carbon Dioxide 35.0 H Anion Gap 2 L BUN 10 Creatinine 0.73 Estim Creat Clear Calc 30.36 Est GFR (MDRD) Af Amer 99 Est GFR (MDRD) Non-Af 82 BUN/Creatinine Ratio 13.7 Glucose 104 Calcium 8.6 Total Bilirubin 1.40 H Direct Bilirubin 0.34 H AST 19 ALT 17 Alkaline Phosphatase 105 Total Protein 5.7 L Albumin 2.7 L Globulin 3.0 Lipase 115 - EKG Initial EKG Interpretation: Sinus Rhythm - Sinus at 67 with no acute ischemia. - Medical Decision Making Patient was given fentanyl, Zofran, and IV fluids. Lab work is obtained. Potassium is slightly low at 3.2. I spoke with [facility] transfer. She is going to reach out to the ER there to see if they will accept an ER to ER transfer without further imaging being done. I received a return call from transfer center at [facility]. She states that because the ED is currently experiencing high volumes with long weights they are unable to accept an ER to ER transfer. She does state that if the patient comes by private vehicle or private ambulance they will see the patient, but it cannot be done as a transfer. This was expressed to the patient and daughter at bedside. They voiced frustration. Daughter is asking if the patient could be admitted at least overnight for stabilization. She states the patient is very weak, not eating, and having syncopal episodes. I will speak with hospitalist. Hospitalist asked us to try to get the patient admitted to inpatient at [facility] as they will have GI available to see her. I spoke with Dr. Ceballos at [facility]. I then spoke with Dr. Osorio at [facility] as they do have beds available. Patient will be transferred to [facility]. Patient will have Covid swab obtained and a lactic acid sent prior to transfer. Patient was accepted at [facility], however as they were calling back with a bed assignment patient's daughter stated that they change their mind and now will only go to [facility]. Patient and family were made aware that it may be a couple days until a bed is available at [facility]. They voiced understanding and state [facility] I did speak again with Dr. Ceballos. He did request a call back tonight with results of a CT scan, the lactic acid, and the Covid test. ED Disposition - Plan for ED Patient: Disposition: [facility] - Main Diagnosis: Abdominal pain Referrals: Milind Pedro MD [Primary Care Provider] -
[2020-03-08] MEDS: 0.9% Normal Saline 1,000 ML 100 ML IV (18:55)
[2020-03-08] MEDS: fentaNYL 100 MCG/2 ML Ampul 25 MCG IV ×3 (18:55→23:10)
[2020-03-08] MEDS: Ondansetron 4 MG/2 ML Vial IV (18:55)
[2020-03-08 19:13] LABS: Absolute Lymphocyte Count 1.25 X10^3/uL (0.83-4.51); Basophil# 0.02 X10^3/uL; Basophil% 0.2 % (0-1); Eosinophil# 0.01 X10^3/uL; Eosinophils% 0.1 % (0-5); Lymphocyte # 1.25 X10^3/ul (4.0); Mean Corp Hgb Conc 34.1 g/dL (32-36); Mean Corpuscular Hgb 32.1 pg (27.0-32.0); Mean Corpuscular Volume 94.2 fL (81-99); Monocyte# 0.64 X10^3/uL; Monocyte% 7.2 % (0-10); NRBC Flagged by Analyzer 0 % (0-5); Neutrophil # 6.99 X10^3/uL (2.7-7.7); Neutrophil % 78.2 % (47-70); Platelet Count 252 K/mm3 (150-450); RBC Distribution Width CV 12.3 % (11.6-14.6); RBC Distribution Width SD 42.7 fl (35.1-43.9); Red Blood Count 4.67 M/mm3 (4.2-5.4); White Blood Count 8.9 K/mm3 (4.4-11.0)
[2020-03-08 19:31] LABS: AST(SGOT) 19 U/L (15-37); Alanine Aminotransfer ALT/SGPT 17 U/L (13-56); Albumin, Serum 2.7 g/dL (3.2-5.0); Alkaline Phosphatase 105 U/L (45-117); Anion Gap 2 (5-15); BUN 10 mg/dL (7-18); BUN/Creat Ratio 13.7 RATIO (10-20); Bilirubin, Direct 0.34 mg/dL (0.00-0.30); Calcium,Total 8.6 mg/dL (8.5-10.1); Chloride 103 mmol/L (98-107); Creatinine, Serum 0.73 mg/dL (0.55-1.02); EST Glomerular Filtration Rate 82 mL/min (>60); Est Glom Filt Rate - Afr Amer 99 mL/min (>60); Estimated Creatinine Clearance 30.36 ml/min; Glucose 104 mg/dL (74-106); Lipase 115 U/L (73-393); Potassium 3.2 mmol/L (3.5-5.1); Protein, Total 5.7 g/dL (6.4-8.2); Sodium Level 140 mmol/L (136-145)
[2020-03-08 19:49] VITALS: BP 120/71; PULSE 74; RESP 18; O2SAT 98
[2020-03-08 21:00] VITALS: BP 128/83; PULSE 75; RESP 18; O2SAT 98
--- NOTE | 2020-03-08 21:07 | PCM.HP.STD ---
History of Present Illness The patient is a 79 year old F [] Past Medical History Past Medical History (Chronic Problems): Chronic Problems (Last Updated 11/02/18 @ 09:49 by Anisa Melchor) GERD (gastroesophageal reflux disease) (Chronic) Personal history of malignant neoplasm of cervix uteri (Chronic) hysterectomy with radiation for tumor involving cervix into uterus approx 1994/[place] Allergies No Known Allergies Allergy (Verified 03/08/20 17:50) Home Medications: Ambulatory Orders Medication Instructions Recorded NK 03/08/20 Surgical History: Surgical History (Last Updated 11/02/18 @ 09:49 by Anisa Melchor) H/O: hysterectomy Z90.710 Surgical History: noncontributory, - - Hysterectomy, cholecystectomy Smoking Status: Never smoker - Physical Exam Vitals/I&O's: Vital Signs Temp Pulse Resp BP Pulse Ox 97.4 F L 75 18 128/83 H 98 03/08/20 17:50 03/08/20 21:00 03/08/20 21:00 03/08/20 21:00 03/08/20 21:00 Oxygen Delivery Method Room Air Weight: 40.823 kg Body Mass Index (BMI) 15.0 Laboratory Results 03/08/20 19:00: WBC 8.9, RBC 4.67, Hgb 15.0, Hct 44.0, MCV 94.2, MCH 32.1 H, MCHC 34.1, RDW Std Deviation 42.7, RDW Coeff of Raysa 12.3, Plt Count 252, MPV 9.0, Immature Gran % (Auto) 0.300, Neut % (Auto) 78.2 H, Lymph % (Auto) 14.0 L, [place] % (Auto) 7.2, Eos % (Auto) 0.1, Baso % (Auto) 0.2, Absolute Neuts (auto) 7.0, Absolute Lymphs (auto) 1.25, Nucleated RBC % 0 03/08/20 19:00: Sodium 140, Potassium 3.2 L, Chloride 103, Carbon Dioxide 35.0 H, Anion Gap 2 L, BUN 10, Creatinine 0.73, Estim Creat Clear Calc 30.36, Est GFR (MDRD) Af Amer 99, Est GFR (MDRD) Non-Af 82, BUN/Creatinine Ratio 13.7, Glucose 104, Calcium 8.6, Total Bilirubin 1.40 H, Direct Bilirubin 0.34 H, AST 19, ALT 17, Alkaline Phosphatase 105, Total Protein 5.7 L, Albumin 2.7 L, Globulin 3.0, Lipase 115 Current Medications Sodium Chloride () 1,000 mls @ 100 mls/hr IV .Q10H LEONCIO Last Admin: 03/08/20 18:55 Dose: 100 mls/hr Documented by: Assessment/Plan All Active Problems (Last Updated 11/02/18 @ 09:49 by Anisa Melchor) HPV negative (Acute)
--- NOTE | 2020-03-08 21:28 | EKG12_ITS ---
Test Reason : ABD PAIN Blood Pressure : / mmHG Vent. Rate : 067 BPM Atrial Rate : 067 BPM P-R Int : 120 ms QRS Dur : 076 ms QT Int : 394 ms P-R-T Axes : 012 081 082 degrees QTc Int : 416 ms Normal sinus rhythm Normal ECG Confirmed by CAIO NEAL, ELIAZAR ([id number]), mapping editor NISHI SANTA ([id number]) on 03/13/2020 1:24:56 PM Referred By: BEATRICE Confirmed By:ELIAZAR KEARNEY MD
[2020-03-08] MEDS: Potassium Chloride 10mEq/100mL 10 MEQ/100 ML IV.SOLN. 100 MEQ IV BOLUS ×2 (21:51→22:54)
--- NOTE | 2020-03-08 22:41 | CT_ITS ---
STUDY: CT ABDOMEN AND PELVIS WITH CONTRAST REASON FOR EXAM: Female, 79 years old. POOR APPETITE, DUMONT X 2 WEEKS, SYNCOPE, ABD PAIN, HYSTERECTOMY 25 YEARS AGO DUE TO CA RADIATION DOSAGE (If Supplied By Facility): CTDIvol = ( 9.19 ) mGy, DLP = ( 236.05 ) mGycm TECHNIQUE: Transaxial images were obtained from the dome of the diaphragm to the symphysis pubis without oral contrast. IV 75mL Isovue-[id number] was administered. Sagittal and coronal images were reconstructed. Individualized dose optimization techniques were used for this CT. COMPARISON: CT of abdomen and pelvis dated January 25, 2020 FINDINGS: Hyperinflated lung bases and subtle cystic emphysematous changes suggesting COPD. A mild pericardial effusion is present. Minimal intrahepatic biliary duct dilatation is present. No liver masses. Normal enhancement. Small cyst of the dome of the right lobe of the liver reidentified requiring no follow-up imaging. Several calcified nodules are present in the liver. Reidentification of periaortic surgical clips and calcified suture material adjacent to the inferior vena cava. A small amount of abdominal and pelvic ascites is present. Normal gallbladder and extrahepatic biliary system. There is severe splenomegaly. Normal pancreas. Normal bilateral adrenal glands. Normal right kidney. Reidentification of small and moderate size simple nonenhancing cyst of the left kidney. Mild prominence of the extrarenal pelvis system of the left kidney. No calyceal dilatation. Normal visualized stomach. Distal small bowel obstruction versus small bowel ileus is present with mild to moderate gaseous and fluid distended small bowel loops starting at the proximal jejunum and extending to the distal one third aspect of the ileum with there is transition from fluid distended bowel to collapsed bowel. It is possible an extrinsic adhesions present in this region causing obstruction, as well as gradual transition related to ileus. Normal colon. A 1.82 cm cylindrical metallic object is seen in the rectum correlate with patient''s exam. This nodule was not seen in the rectum on the prior study. There is non-visualization of the appendix. There is diffuse atherosclerotic calcification of the abdominal aorta, without a demonstrated aneurysm. Normal inferior vena cava. Normal retroperitoneum. Normal urinary bladder. There is absence of the uterus consistent with a prior hysterectomy. Normal abdominal wall. There are diffuse degenerative changes of the visualized lumbar spine. CT/Abdomen/Pelvis W IV Cont ONLY IMPRESSION: 1. Mild to moderate small bowel ileus versus a distal small bowel obstruction in the distal one third ileal region. See image #[id number] series 2 2. A 1.82 cm cylindrical metallic object is seen in the rectum correlate with patient''s exam. This nodule was not seen in the rectum on the prior study. 3. Interval development of mild abdominal and pelvic ascites 4. Small pericardial effusion. Electronically Signed: Vinny Lombardi MD at 23:56 EDT , Service support ,
[2020-03-08 23:00] VITALS: BP 118/75; PULSE 77; RESP 22; O2SAT 97
[2020-03-08 23:16] LABS: Lactic Acid 1.2 mmol/L (0.4-1.9)
[2020-03-09] VITALS (8 sets, daily range): BP systolic 99–125; BP diastolic 53–78; PULSE 65–73; RESP 16–22; TEMP 36.6–37.4; O2SAT 92–100
[2020-03-09] MEDS: Potassium Chloride 10mEq/100mL 10 MEQ/100 ML IV.SOLN. 100 MEQ IV BOLUS ×2 (00:24→01:36)
[2020-03-09] MEDS: fentaNYL 100 MCG/2 ML Ampul 25 MCG IV ×3 (03:13→11:48)
[2020-03-09] MEDS: 0.9% Normal Saline 1,000 ML 100 ML IV (08:23)
[2020-03-09] MEDS: Ondansetron 4 MG/2 ML Vial IV (09:05)
--- NOTE | 2020-03-09 09:37 | ED.RN ---
THIS NURSE CONTACTED [facility] ABOUT PT GOING TO [facility]
== END 2020-03-09 12:25 | disposition short-term general hospital (02) ==
PROVIDERS: Emergency Provider Emergency Medicine; PCP Family Medicine
DX: R10.9 Unspecified abdominal pain (principal); R11.0 Nausea; R55 Syncope and collapse; K21.9 Gastro-esophageal reflux disease without esophagitis; Z90.49 Acquired absence of other specified parts of digestive tract
CPT/HCPCS: 74177; 80048; 80076; 83605; 83690; 85025; 87635; 93005; 96361; 96365; 96366; 96375; 96376; 99285; C9803; J7030; Q9967; A4216; J2405; U0003

== ENCOUNTER → 2020-05-04 13:48 | Outpatient (CLI) | payer MEDICARE, SELFPAY ==
[2020-05-04 17:01] LABS: Absolute Lymphocyte Count 0.84 X10^3/uL (0.83-4.51); Absolute Neutrophil Count 3.2 X10^3/uL (2.0-7.7); Basophil# 0.01 X10^3/uL; Basophil% 0.2 % (0-1); Eosinophil# 0.04 X10^3/uL; Eosinophils% 0.9 % (0-5); Hemoglobin 13.4 g/dL (12.0-15.0); Lymphocyte # 0.84 X10^3/ul (4.0); Lymphocyte % 18.5 % (19-41); Mean Corp Hgb Conc 31.9 g/dL (32-36); Mean Corpuscular Hgb 32.4 pg (27.0-32.0); Mean Corpuscular Volume 101.4 fL (81-99); Mean Platelet Vol. 9.5 fl (6.2-12.0); Monocyte# 0.42 X10^3/uL; Monocyte% 9.3 % (0-10); NRBC Flagged by Analyzer 0 % (0-5); Neutrophil # 3.21 X10^3/uL (2.7-7.7); Neutrophil % 70.9 % (47-70); Platelet Count 293 K/mm3 (150-450); RBC Distribution Width CV 13.4 % (11.6-14.6); RBC Distribution Width SD 50.6 fl (35.1-43.9); Red Blood Count 4.14 M/mm3 (4.2-5.4); White Blood Count 4.5 K/mm3 (4.4-11.0)
[2020-05-04 17:13] LABS: Ferritin 124 ng/mL (8-252); Iron 84 ug/dL (50-170)
[2020-05-04 17:16] LABS: Vitamin B12 266 pg/mL (211-911)
== END ==
PROVIDERS: PCP Family Medicine; Visit Provider Family Medicine
DX: D50.9 Iron deficiency anemia, unspecified (principal)
CPT/HCPCS: 36415; 82607; 82728; 83540; 85025

== ENCOUNTER 2020-08-31 12:57 | Outpatient (RCR) | payer MEDICARE, SELFPAY ==
[2020-08-31] MEDS: COVID-19 VACC, MRNA(PFIZER)/PF 30 MCG/0.3 ML SYRINGE IM (11:04)
[2020-09-21] MEDS: COVID-19 VACC, MRNA(PFIZER)/PF 30 MCG/0.3 ML SYRINGE IM (10:58)
== END 2020-11-28 23:59 ==
LOC: IMMUN 12:57
PROVIDERS: PCP Family Medicine; Referring Provider Family Medicine; Visit Provider Family Medicine
DX: Z23 Encounter for immunization (principal)
CPT/HCPCS: 0001A; 0002A; 91300

== ENCOUNTER → 2025-04-15 | Outpatient (CLI) | payer MEDICARE, SELFPAY | END | disposition home or self-care (01) | LOC: CVS 12:35 | PROVIDERS: PCP Family Medicine; Referring Provider Podiatrist; Visit Provider Podiatrist | DX: M79.89 Other specified soft tissue disorders (principal); M79.662 Pain in left lower leg | CPT/HCPCS: 93971 ==